=== PATIENT | female | born 1940 | race Caucasian/White ===

== ENCOUNTER 2017-10-25 19:31 | Emergency (ER) | payer OTHER ==
[~2017-10-25] VITALS: Ht 167.6 cm; Wt 63.5 kg
[~2017-10-25 19:31] MED LIST: ECOTRIN81 MG PO
[2017-10-25] MEDS ORDERED: CLONAZEPAM1 M1 PO (19:43)
== END 2017-10-26 00:17 | disposition home or self-care (01) ==
LOC: ER 19:31
DX: K29.70 Gastritis, unspecified, without bleeding (principal)

== ENCOUNTER 2020-02-25 14:46 | Emergency (ER) | payer OTHER ==
[~2020-02-25] VITALS: Ht 170.2 cm; Wt 65.8 kg
[~2020-02-25 14:46] MED LIST changes: +CLONAZEPAM1 M1 PO; +PEPCID20 MG
[2020-02-25] MEDS ORDERED: TOPROL XL25 M1 (15:13)
[2020-02-25] MEDS ORDERED: PROTONIX40 M1 (15:13)
== END 2020-02-25 20:41 | disposition home or self-care (01) ==
LOC: ER 14:46
DX: K57.90 Diverticulosis of intestine, part unspecified, without perforation or abscess without bleeding (principal); R10.32 Left lower quadrant pain; R19.7 Diarrhea, unspecified

== ENCOUNTER 2020-08-11 14:27 | Emergency (ER) | payer OTHER ==
[~2020-08-11] VITALS: Ht 170.2 cm; Wt 65.8 kg
[~2020-08-11 14:27] MED LIST changes: +PROTONIX40 M1; +TOPROL XL25 M1
== END 2020-08-11 18:54 | disposition home or self-care (01) ==
LOC: ER 14:27
DX: R07.0 Pain in throat (principal); K21.9 Gastro-esophageal reflux disease without esophagitis; R63.0 Anorexia; T42.4X5A Adverse effect of benzodiazepines, initial encounter; Y92.89 Other specified places as the place of occurrence of the external cause